=== PATIENT | male | born 1990 | race Caucasian/White ===

== ENCOUNTER 2016-04-11 19:19 | Emergency (ER) | payer OTHER ==
[~2016-04-11] VITALS: Ht 188 cm; Wt 12.7 kg
[2016-04-11 19:35] VITALS: BP 116/72; PULSE 81; RESP 15; O2SAT 100
== END 2016-04-11 21:03 | disposition left against medical advice (07) ==
LOC: SED 19:19
DX: Z53.21 Procedure and treatment not carried out due to patient leaving prior to being seen by health care provider (principal)